=== PATIENT | female | born 1960 | race Caucasian/White ===

== ENCOUNTER 2017-08-17 21:49 | Inpatient (IN) | payer MEDICAID ==
[2017-08-17 23:11] LABS: HEMATOCRIT 40.6 % (37.0-47.0); HEMOGLOBIN 13.7 g/dl (12.0-16.0); MEAN CORPUSCULAR HEMOGLOBIN 28.8 pg (29.0-33.0); MEAN CORPUSCULAR HGB CONC 33.7 g/dl (32.0-37.0); MEAN CORPUSCULAR VOLUME 85.5 fl (82.0-101.0); MEAN PLATELET VOLUME 10.4 fl (7.4-10.4); PLATELET COUNT 221 10^3/UL (140-415); RED BLOOD COUNT 4.75 10^6/ul (4.20-5.40); RED CELL DISTRIBUTION WIDTH 13.6 % (11.5-14.5)
[2017-08-17 23:11] LABS: WHITE BLOOD COUNT 9.3 10^3/ul (4.8-10.8)
[2017-08-17 23:14] LABS: ADD MAN DIFF? YES; POSITIVE DIFF @See below
[2017-08-17] MEDS: ONDANSETRON 4 MG INJ IV (23:14)
[2017-08-17] MEDS: SOD CHLORIDE 0.9% 1,000 ML IV (23:14)
[2017-08-17] MEDS: morphine 4 MG/ML VIAL IV (23:14)
[2017-08-17 23:33] LABS: LACTIC ACID 1.6 mmol/L (0.5-2.0)
[2017-08-17 23:34] LABS: ALANINE AMINOTRANSFERASE 27 IU/L (13-69); ALBUMIN 3.8 g/dl (3.3-4.9); ALBUMIN/GLOBULIN RATIO 1.15; ALKALINE PHOSPHATASE 103 IU/L (42-121); ANION GAP 14 (8-16); ASPARTATE AMINO TRANSFERASE 30 IU/L (15-46); BILIRUBIN,INDIRECT 2.8 mg/dl (0-1.1); BILIRUBIN,TOTAL 2.8 mg/dl (0.2-1.3); BLOOD UREA NITROGEN 16 mg/dl (7-20); CALCIUM 9.6 mg/dl (8.4-10.2); CARBON DIOXIDE 26 mmol/L (21-31); CHLORIDE 103 mmol/L (97-110); CREATININE 0.93 mg/dl (0.44-1.00); GLUCOSE 118 mg/dl (70-220); LIPASE 15 U/L (23-300); POTASSIUM 4.1 mmol/L (3.5-5.1); SODIUM 139 mmol/L (135-144); TOTAL PROTEIN 7.1 g/dl (6.1-8.1)
[2017-08-17 23:59] LABS: ADD UMIC YES; UR ASCORBIC ACID NEGATIVE (NEGATIVE); UR BILIRUBIN (Dip) 1+ mg/dL (NEGATIVE); UR BLOOD (Dip) 2+ mg/dL (NEGATIVE); UR CLARITY SLIGHTLY CLOUDY (CLEAR); UR COLOR AMBER (YELLOW); UR GLUCOSE (Dip) NEGATIVE (NEGATIVE); UR KETONES (Dip) NEGATIVE (NEGATIVE); UR LEUKOCYTE ESTERASE (Dip) NEGATIVE Leu/ul (NEGATIVE); UR MUCUS FEW /HPF (NONE SEEN); UR NITRITE (Dip) NEGATIVE (NEGATIVE); UR RBC 4 /HPF (0-5); UR SPECIFIC GRAVITY (Dip) 1.028 (1.003-1.030); UR SQUAMOUS EPITHELIAL CELL FEW /HPF (FEW); UR TOTAL PROTEIN (Dip) 2+ mg/dl (NEGATIVE); UR UROBILINOGEN (Dip) 2+ mg/dL (NEGATIVE); UR WBC 3 /HPF (0-5)
[2017-08-18 00:33] LABS: BAND NEUTROPHILS #M 1.9 10^3/ul (0.0-0.6); BAND NEUTROPHILS % (M) 21 % (0-4); GIANT THROMBO% (M) 1 % (0-0); LYMPHOCYTES #M 1.1 10^3/ul (0.8-2.9); LYMPHOCYTES % (M) 12 % (15-51); METAMYELOCYTES %M 1 % (0-0); MONOCYTE #M 0.1 10^3/ul (0.3-0.9); MONOCYTES % (M) 2 % (0-11); PLATELET ESTIMATE NORMAL; PROMYELOCYTES % (M) 1 % (0-0); SEGMENTED NEUTROPHILS (M) % 63 % (39-77); SMUDGE%M 1 % (0-0)
[2017-08-18] MEDS ORDERED: ONDANSETRON 4 MG INJ IV (05:00)
[2017-08-18] MEDS: DEXTROSE 5%-0.45% NACL 1,000 ML IV ×4 (05:23→18:24)
[2017-08-18] MEDS: morphine 2 MG INJ IV ×4 (05:30→18:18)
[2017-08-18 06:15] LABS: ADD MAN DIFF? NO
[2017-08-18 06:17] LABS: ABNORMAL IP MESSAGE 1; BASOPHILS % 0.1 % (0.0-2.0); HEMATOCRIT 34.7 % (37.0-47.0); HEMOGLOBIN 11.7 g/dl (12.0-16.0); LYMPHOCYTES # 0.4 10^3/ul (0.8-2.9); LYMPHOCYTES % 5.2 % (15.0-51.0); MEAN CORPUSCULAR HEMOGLOBIN 29.5 pg (29.0-33.0); MEAN CORPUSCULAR HGB CONC 33.7 g/dl (32.0-37.0); MEAN CORPUSCULAR VOLUME 87.4 fl (82.0-101.0); MEAN PLATELET VOLUME 10.5 fl (7.4-10.4); MONOCYTE # 0.4 10^3/ul (0.3-0.9); MONOCYTES % 5.3 % (0.0-11.0); NEUTROPHIL # 6.7 10^3/ul (1.6-7.5); PLATELET COUNT 174 10^3/UL (140-415); RED BLOOD COUNT 3.97 10^6/ul (4.20-5.40); RED CELL DISTRIBUTION WIDTH 13.8 % (11.5-14.5)
[2017-08-18 06:17] LABS: WHITE BLOOD COUNT 7.5 10^3/ul (4.8-10.8)
[2017-08-18 06:24] LABS: POSITIVE DIFF @See below
[2017-08-18 06:55] LABS: ALANINE AMINOTRANSFERASE 25 IU/L (13-69); ALBUMIN 3.3 g/dl (3.3-4.9); ALKALINE PHOSPHATASE 84 IU/L (42-121); ANION GAP 12 (8-16); ASPARTATE AMINO TRANSFERASE 27 IU/L (15-46); BILIRUBIN,INDIRECT 2.3 mg/dl (0-1.1); BILIRUBIN,TOTAL 2.3 mg/dl (0.2-1.3); BLOOD UREA NITROGEN 16 mg/dl (7-20); CALCIUM 8.9 mg/dl (8.4-10.2); CARBON DIOXIDE 29 mmol/L (21-31); CHLORIDE 104 mmol/L (97-110); CREATININE 0.92 mg/dl (0.44-1.00); GLUCOSE 101 mg/dl (70-220); MAGNESIUM 1.9 mg/dl (1.7-2.5); PHOSPHORUS 2.7 mg/dl (2.5-4.9); SODIUM 141 mmol/L (135-144); TOTAL PROTEIN 6.6 g/dl (6.1-8.1)
[2017-08-18] MEDS ORDERED: ALBUTEROL/IPRATROPIUM (NEB) 3 ML AMP HHN (08:30)
[2017-08-18] MEDS ORDERED: NACL 0.9% 3 ML SYG IV (08:30)
[2017-08-18] MEDS: CEFEPIME 1GM/50 ML (PMX) 50 ML IVPB ×2 (08:40→21:17)
[2017-08-18] MEDS: ACETAMINOPHEN 325 MG TAB PO (16:37)
[2017-08-18 20:10] LABS: CANCER ANTIGEN 19-9 < 1.4 U/ml (0.0-37.0)
[2017-08-18 23:42] LABS: HEMOGLOBIN 11.1 g/dl (12.0-16.0)
[2017-08-19] MEDS ORDERED: morphine 2 MG INJ IV (00:30)
[2017-08-19] MEDS: LACTATED RINGER'S 500 ML IV (01:03)
[2017-08-19] MEDS: HYDROCODONE/APAP (7.5/325) TAB PO (02:18)
[2017-08-19] MEDS: DEXTROSE 5%-0.45% NACL 1,000 ML IV ×2 (05:51→17:55)
[2017-08-19 06:27] LABS: WHITE BLOOD COUNT 7.7 10^3/ul (4.8-10.8)
[2017-08-19 06:27] LABS: ABNORMAL IP MESSAGE 1; ADD MAN DIFF? NO; BASOPHILS % 0.1 % (0.0-2.0); EOSINOPHILS % 0.1 % (0.0-7.0); HEMATOCRIT 32.7 % (37.0-47.0); HEMOGLOBIN 10.9 g/dl (12.0-16.0); LYMPHOCYTES # 0.5 10^3/ul (0.8-2.9); LYMPHOCYTES % 6.1 % (15.0-51.0); MEAN CORPUSCULAR HEMOGLOBIN 28.9 pg (29.0-33.0); MEAN CORPUSCULAR HGB CONC 33.3 g/dl (32.0-37.0); MEAN CORPUSCULAR VOLUME 86.7 fl (82.0-101.0); MEAN PLATELET VOLUME 11.4 fl (7.4-10.4); MONOCYTE # 0.5 10^3/ul (0.3-0.9); MONOCYTES % 6.6 % (0.0-11.0); NEUTROPHIL # 6.7 10^3/ul (1.6-7.5); NEUTROPHILS % 86.6 % (39.0-77.0); PLATELET COUNT 166 10^3/UL (140-415); RED BLOOD COUNT 3.77 10^6/ul (4.20-5.40); RED CELL DISTRIBUTION WIDTH 13.9 % (11.5-14.5)
[2017-08-19 06:32] LABS: POSITIVE DIFF @See below
[2017-08-19 06:50] LABS: ALANINE AMINOTRANSFERASE 22 IU/L (13-69); ALBUMIN 3.2 g/dl (3.3-4.9); ALBUMIN/GLOBULIN RATIO 1.03; ALKALINE PHOSPHATASE 87 IU/L (42-121); ANION GAP 8 (8-16); ASPARTATE AMINO TRANSFERASE 23 IU/L (15-46); BILIRUBIN,INDIRECT 1.2 mg/dl (0-1.1); BILIRUBIN,TOTAL 1.2 mg/dl (0.2-1.3); BLOOD UREA NITROGEN 11 mg/dl (7-20); CALCIUM 8.6 mg/dl (8.4-10.2); CARBON DIOXIDE 29 mmol/L (21-31); CHLORIDE 104 mmol/L (97-110); CREATININE 0.78 mg/dl (0.44-1.00); GLUCOSE 113 mg/dl (70-220); MAGNESIUM 2.1 mg/dl (1.7-2.5); PHOSPHORUS 2.3 mg/dl (2.5-4.9); POTASSIUM 3.5 mmol/L (3.5-5.1); SODIUM 137 mmol/L (135-144); TOTAL PROTEIN 6.3 g/dl (6.1-8.1)
[2017-08-19] MEDS: ACETAMINOPHEN 325 MG TAB PO (09:08)
[2017-08-19] MEDS: CEFEPIME 1GM/50 ML (PMX) 50 ML IVPB ×2 (09:47→22:27)
[2017-08-19] MEDS: HYDROmorphONE 0.5 MG/0.5 ML SYG IV ×2 (16:42→20:05)
[2017-08-20] MEDS: ACETAMINOPHEN 325 MG TAB PO (01:14)
[2017-08-20] MEDS: ONDANSETRON 4 MG INJ IV ×4 (01:27→23:09)
[2017-08-20] MEDS: DEXTROSE 5%-0.45% NACL 1,000 ML IV ×2 (04:44→15:17)
[2017-08-20 05:49] LABS: ADD MAN DIFF? NO
[2017-08-20 05:53] LABS: BASOPHILS % 0.2 % (0.0-2.0); EOSINOPHILS % 0.2 % (0.0-7.0); HEMATOCRIT 32.4 % (37.0-47.0); HEMOGLOBIN 10.9 g/dl (12.0-16.0); LYMPHOCYTES # 0.7 10^3/ul (0.8-2.9); LYMPHOCYTES % 8.2 % (15.0-51.0); MEAN CORPUSCULAR HEMOGLOBIN 28.6 pg (29.0-33.0); MEAN CORPUSCULAR HGB CONC 33.6 g/dl (32.0-37.0); MEAN PLATELET VOLUME 10.7 fl (7.4-10.4); MONOCYTE # 0.9 10^3/ul (0.3-0.9); MONOCYTES % 10.9 % (0.0-11.0); NEUTROPHIL # 6.7 10^3/ul (1.6-7.5); PLATELET COUNT 192 10^3/UL (140-415); RED BLOOD COUNT 3.81 10^6/ul (4.20-5.40); RED CELL DISTRIBUTION WIDTH 13.5 % (11.5-14.5)
[2017-08-20 05:53] LABS: WHITE BLOOD COUNT 8.3 10^3/ul (4.8-10.8)
[2017-08-20 06:16] LABS: ANION GAP 9 (8-16); BLOOD UREA NITROGEN 7 mg/dl (7-20); CALCIUM 8.6 mg/dl (8.4-10.2); CARBON DIOXIDE 27 mmol/L (21-31); CHLORIDE 107 mmol/L (97-110); CREATININE 0.67 mg/dl (0.44-1.00); GLUCOSE 115 mg/dl (70-220); POTASSIUM 3.4 mmol/L (3.5-5.1); SODIUM 140 mmol/L (135-144)
[2017-08-20 07:10] LABS: CARCINOEMBRYONIC ANTIGEN 0.7 ng/ml (0.0-5.0)
[2017-08-20] MEDS: CEFEPIME 1GM/50 ML (PMX) 50 ML IVPB (08:45)
[2017-08-20] MEDS: IOHEXOL 14.3 MG(I)/ML (ADULT) BTL PO (08:45)
[2017-08-20] MEDS: KETOROLAC 15 MG INJ IV ×3 (10:57→23:11)
[2017-08-20] MEDS: POTASSIUM CHLORIDE (SR) 20 MEQ TAB PO (15:16)
[2017-08-20] MEDS: PIPER-TAZO 3.375 GM IV (PMX) 100 ML IVPB ×2 (15:17→23:12)
[2017-08-20] MEDS: HYDROCODONE/APAP (7.5/325) TAB PO (21:47)
[2017-08-21] MEDS: HYDROCODONE/APAP (7.5/325) TAB PO ×4 (02:56→21:05)
[2017-08-21] MEDS: DEXTROSE 5%-0.45% NACL 1,000 ML IV ×2 (02:57→20:53)
[2017-08-21] MEDS: ONDANSETRON 4 MG INJ IV ×3 (05:21→17:54)
[2017-08-21] MEDS: KETOROLAC 15 MG INJ IV ×3 (05:22→17:54)
[2017-08-21] MEDS: PIPER-TAZO 3.375 GM IV (PMX) 100 ML IVPB ×3 (05:23→17:55)
[2017-08-21 06:04] LABS: ADD MAN DIFF? NO
[2017-08-21 06:12] LABS: BASOPHILS % 0.1 % (0.0-2.0); EOSINOPHILS # 0.1 10^3/ul (0.0-0.5); EOSINOPHILS % 0.9 % (0.0-7.0); HEMATOCRIT 30.5 % (37.0-47.0); HEMOGLOBIN 10.5 g/dl (12.0-16.0); LYMPHOCYTES # 1.2 10^3/ul (0.8-2.9); LYMPHOCYTES % 18.4 % (15.0-51.0); MEAN CORPUSCULAR HEMOGLOBIN 29.2 pg (29.0-33.0); MEAN CORPUSCULAR HGB CONC 34.4 g/dl (32.0-37.0); MEAN PLATELET VOLUME 10.4 fl (7.4-10.4); MONOCYTE # 0.8 10^3/ul (0.3-0.9); MONOCYTES % 12.4 % (0.0-11.0); NEUTROPHIL # 4.5 10^3/ul (1.6-7.5); NEUTROPHILS % 67.8 % (39.0-77.0); PLATELET COUNT 206 10^3/UL (140-415); RED BLOOD COUNT 3.59 10^6/ul (4.20-5.40); RED CELL DISTRIBUTION WIDTH 13.8 % (11.5-14.5)
[2017-08-21 06:12] LABS: WHITE BLOOD COUNT 6.7 10^3/ul (4.8-10.8)
[2017-08-21] MEDS: SOD CHLORIDE 0.9% 500 ML IV (06:39)
[2017-08-21 06:57] LABS: ANION GAP 9 (8-16); BLOOD UREA NITROGEN 7 mg/dl (7-20); CALCIUM 8.8 mg/dl (8.4-10.2); CARBON DIOXIDE 29 mmol/L (21-31); CHLORIDE 109 mmol/L (97-110); CREATININE 0.77 mg/dl (0.44-1.00); GLUCOSE 107 mg/dl (70-220); POTASSIUM 3.3 mmol/L (3.5-5.1); SODIUM 144 mmol/L (135-144)
[2017-08-21] MEDS: ENOXAPARIN 40 MG/0.4 ML SYG SC (11:30)
[2017-08-21] MEDS: POTASSIUM CHLORIDE 20 MEQ POWDER FOR ORAL SOLN PO (11:30)
[2017-08-21] MEDS: FAMOTIDINE 20 MG TAB PO (11:30)
[2017-08-21] MEDS: IOHEXOL 14.3 MG(I)/ML (ADULT) BTL PO (18:33)
[2017-08-21] MEDS: SOD CHLORIDE 0.9% 100 ML (21:25)
[2017-08-21] MEDS: IOHEXOL 300MG/ML 150 ML BTL (21:25)
[2017-08-22] MEDS: PIPER-TAZO 3.375 GM IV (PMX) 100 ML IVPB ×5 (00:35→23:52)
[2017-08-22] MEDS: KETOROLAC 15 MG INJ IV ×3 (00:36→12:26)
[2017-08-22] MEDS: ONDANSETRON 4 MG INJ IV ×3 (00:43→12:26)
[2017-08-22] MEDS: HYDROCODONE/APAP (7.5/325) TAB PO ×6 (01:39→23:56)
[2017-08-22 06:28] LABS: WHITE BLOOD COUNT 8.2 10^3/ul (4.8-10.8)
[2017-08-22 06:28] LABS: HEMATOCRIT 30.9 % (37.0-47.0); HEMOGLOBIN 10.4 g/dl (12.0-16.0); MEAN CORPUSCULAR HEMOGLOBIN 28.8 pg (29.0-33.0); MEAN CORPUSCULAR HGB CONC 33.7 g/dl (32.0-37.0); MEAN CORPUSCULAR VOLUME 85.6 fl (82.0-101.0); MEAN PLATELET VOLUME 10.2 fl (7.4-10.4); PLATELET COUNT 242 10^3/UL (140-415); RED BLOOD COUNT 3.61 10^6/ul (4.20-5.40)
[2017-08-22 06:56] LABS: ADD MAN DIFF? YES; POSITIVE DIFF @See below
[2017-08-22 07:07] LABS: INR 1.19; PROTIME 15.3 Sec (11.9-14.9); PT RATIO 1.2
[2017-08-22 07:50] LABS: ALANINE AMINOTRANSFERASE 39 IU/L (13-69); ALBUMIN 2.8 g/dl (3.3-4.9); ALBUMIN/GLOBULIN RATIO 0.87; ALKALINE PHOSPHATASE 188 IU/L (42-121); ANION GAP 11 (8-16); ASPARTATE AMINO TRANSFERASE 36 IU/L (15-46); BLOOD UREA NITROGEN 4 mg/dl (7-20); CALCIUM 8.8 mg/dl (8.4-10.2); CARBON DIOXIDE 30 mmol/L (21-31); CHLORIDE 108 mmol/L (97-110); CREATININE 0.78 mg/dl (0.44-1.00); GLUCOSE 91 mg/dl (70-220); MAGNESIUM 2.1 mg/dl (1.7-2.5); PHOSPHORUS 2.9 mg/dl (2.5-4.9); POTASSIUM 3.5 mmol/L (3.5-5.1); SODIUM 145 mmol/L (135-144)
[2017-08-22 08:29] LABS: ANISOCYTOSIS 1+ (0-0); BAND NEUTROPHILS #M 0.1 10^3/ul (0.0-0.6); BAND NEUTROPHILS % (M) 2 % (0-4); EOSINOPHILS % (M) 3 % (0-7); LYMPHOCYTES #M 2.9 10^3/ul (0.8-2.9); LYMPHOCYTES % (M) 36 % (15-51); MICROCYTOSIS 1+ (0-0); MONOCYTE #M 0.4 10^3/ul (0.3-0.9); MONOCYTES % (M) 6 % (0-11); PLATELET ESTIMATE NORMAL; REACTIVE LYMPHOCYTES #M 0.1 10^3/ul (0.0-0.0); REACTIVE LYMPHOCYTES% (M) 2 % (0-0); SEG NEUT #M 4.2 10^3/ul (1.6-7.5); SEGMENTED NEUTROPHILS (M) % 51 % (39-77); SMUDGE%M 3 % (0-0)
[2017-08-22] MEDS: POTASSIUM CHLORIDE 20 MEQ POWDER FOR ORAL SOLN PO (08:29)
[2017-08-22] MEDS: FAMOTIDINE 20 MG TAB PO (08:29)
[2017-08-22] MEDS: ENOXAPARIN 40 MG/0.4 ML SYG SC (08:30)
[2017-08-22 08:41] LABS: HEMOGLOBIN A1C 5.5 % (0-5.9)
[2017-08-22] MEDS: DEXTROSE 5%-0.45% NACL 1,000 ML IV (15:37)
[2017-08-22] MEDS: MAGNESIUM CITRATE 300 ML BTL PO (17:47)
[2017-08-23] MEDS: PIPER-TAZO 3.375 GM IV (PMX) 100 ML IVPB ×3 (06:06→17:53)
[2017-08-23 06:13] LABS: HEMATOCRIT 31.3 % (37.0-47.0); HEMOGLOBIN 10.6 g/dl (12.0-16.0); MEAN CORPUSCULAR HEMOGLOBIN 28.6 pg (29.0-33.0); MEAN CORPUSCULAR HGB CONC 33.9 g/dl (32.0-37.0); MEAN CORPUSCULAR VOLUME 84.6 fl (82.0-101.0); PLATELET COUNT 288 10^3/UL (140-415)
[2017-08-23 06:13] LABS: WHITE BLOOD COUNT 8.3 10^3/ul (4.8-10.8)
[2017-08-23 06:24] LABS: ADD MAN DIFF? YES; POSITIVE DIFF @See below
[2017-08-23 06:57] LABS: ALANINE AMINOTRANSFERASE 46 IU/L (13-69); ALBUMIN 2.9 g/dl (3.3-4.9); ALBUMIN/GLOBULIN RATIO 0.85; ALKALINE PHOSPHATASE 246 IU/L (42-121); ANION GAP 10 (8-16); ASPARTATE AMINO TRANSFERASE 53 IU/L (15-46); BILIRUBIN,INDIRECT 0.9 mg/dl (0-1.1); BILIRUBIN,TOTAL 0.9 mg/dl (0.2-1.3); BLOOD UREA NITROGEN 3 mg/dl (7-20); CALCIUM 8.7 mg/dl (8.4-10.2); CARBON DIOXIDE 31 mmol/L (21-31); CHLORIDE 107 mmol/L (97-110); CREATININE 0.74 mg/dl (0.44-1.00); GLUCOSE 101 mg/dl (70-220); POTASSIUM 3.4 mmol/L (3.5-5.1); SODIUM 145 mmol/L (135-144); TOTAL PROTEIN 6.3 g/dl (6.1-8.1)
[2017-08-23] MEDS ORDERED: ONDANSETRON 4 MG INJ (07:00)
[2017-08-23] MEDS ORDERED: METOCLOPRAMIDE 10 MG INJ (07:00)
[2017-08-23] MEDS ORDERED: DEXAMETHASONE 4 MG/ML 1 ML INJ (07:00)
[2017-08-23] MEDS ORDERED: ACETAMINOPHEN 1000 MG/100 ML IVPB (07:00)
[2017-08-23] MEDS ORDERED: VANCOMYCIN IV PER PHARMACY XX (07:30)
[2017-08-23] MEDS: DEXTROSE 5%-0.45% NACL 1,000 ML IV (07:33)
[2017-08-23 07:36] LABS: BAND NEUTROPHILS #M 0.1 10^3/ul (0.0-0.6); BAND NEUTROPHILS % (M) 2 % (0-4); EOSINOPHILS % (M) 2 % (0-7); LYMPHOCYTES #M 1.6 10^3/ul (0.8-2.9); LYMPHOCYTES % (M) 20 % (15-51); METAMYELOCYTES %M 1 % (0-0); MONOCYTE #M 0.2 10^3/ul (0.3-0.9); MONOCYTES % (M) 3 % (0-11); PLATELET ESTIMATE NORMAL; POLYCHROMASIA 3+ (0-0); REACTIVE LYMPHOCYTES #M 0.1 10^3/ul (0.0-0.0); REACTIVE LYMPHOCYTES% (M) 2 % (0-0); SEG NEUT #M 5.8 10^3/ul (1.6-7.5); SEGMENTED NEUTROPHILS (M) % 70 % (39-77); SMUDGE%M 4 % (0-0)
[2017-08-23 07:37] LABS: INR 1.18; PROTIME 15.2 Sec (11.9-14.9); PT RATIO 1.2
[2017-08-23 07:38] LABS: PARTIAL THROMBOPLASTIN TIME 35.6 Sec (25.0-35.0)
[2017-08-23] MEDS ORDERED: VASOPRESSIN 20 UNITS INJ (07:41)
[2017-08-23] MEDS ORDERED: LIDOCAINE 1%/EPI 30 ML INJ (07:41)
[2017-08-23] MEDS ORDERED: SODIUM CL BACTERIOSTATIC 30 ML INJ (07:41)
[2017-08-23] MEDS ORDERED: FENTAnyl 50 MCG/ML VIAL ×2 (07:56→09:03)
[2017-08-23] MEDS ORDERED: PROPOFOL 20 ML (07:56)
[2017-08-23] MEDS ORDERED: MIDAZOLAM 1 MG/ML 2 ML INJ (07:56)
[2017-08-23] MEDS ORDERED: ROCURONIUM 50 MG INJ (07:56)
[2017-08-23] MEDS ORDERED: LIDOCAINE 2% (SDV) 5 ML INJ (07:56)
[2017-08-23] MEDS ORDERED: SUCCINYLCHOLINE CHLORIDE 100 MG/5 ML SYG IV (07:56)
[2017-08-23] MEDS: VANCOMYCIN 1.5 GM in SOD CHLORIDE 0.9% 250 ML IVPB (08:34)
[2017-08-23] MEDS: FAMOTIDINE 20 MG TAB PO (08:34)
[2017-08-23] MEDS: POTASSIUM CHLORIDE 20 MEQ POWDER FOR ORAL SOLN PO (08:34)
[2017-08-23] MEDS: POLYMYXIN/BACITRACIN 1L IRRIG (10:25)
[2017-08-23] MEDS: D5-NS + KCL 20 MEQ 1,000 ML IV ×3 (11:57→19:57)
[2017-08-23] MEDS ORDERED: DIPHENHYDRAMINE 50 MG INJ IV ×3 (12:00→13:00)
[2017-08-23] MEDS ORDERED: ROPIVACAINE 0.5 % 30 ML VIAL (12:04)
[2017-08-23] MEDS ORDERED: morphine SULFATE/PF (10 MG/10 ML) INJ (12:15)
[2017-08-23] MEDS ORDERED: HYDROmorphONE 2 MG/ML SYG (12:17)
[2017-08-23] MEDS ORDERED: SUGAMMADEX SODIUM 200 MG/2 ML VIAL IV (12:18)
[2017-08-23] MEDS ORDERED: HYDROmorphONE 0.2 MG/ML PCA IV (12:30)
[2017-08-23] MEDS ORDERED: NALOXONE (0.4 MG/ML) INJ IV ×2 (12:30→13:00)
[2017-08-23] MEDS ORDERED: KETOROLAC 30 MG INJ (12:39)
[2017-08-23] MEDS ORDERED: HYDROmorphONE (0.2 MG/ML) 10ML SYG IV ×4 (12:41→13:00)
[2017-08-23 12:47] LABS: ADD MAN DIFF? NO
[2017-08-23 12:48] LABS: BASOPHIL # 0.1 10^3/ul (0.0-0.1); BASOPHILS % 0.5 % (0.0-2.0); EOSINOPHILS % 0.1 % (0.0-7.0); HEMATOCRIT 35.2 % (37.0-47.0); HEMOGLOBIN 11.9 g/dl (12.0-16.0); LYMPHOCYTES # 2.9 10^3/ul (0.8-2.9); LYMPHOCYTES % 14.6 % (15.0-51.0); MEAN CORPUSCULAR HEMOGLOBIN 28.3 pg (29.0-33.0); MEAN CORPUSCULAR HGB CONC 33.8 g/dl (32.0-37.0); MEAN CORPUSCULAR VOLUME 83.8 fl (82.0-101.0); MEAN PLATELET VOLUME 9.6 fl (7.4-10.4); MONOCYTES % 5.2 % (0.0-11.0); NEUTROPHIL # 15.7 10^3/ul (1.6-7.5); PLATELET COUNT 442 10^3/UL (140-415)
[2017-08-23 12:48] LABS: WHITE BLOOD COUNT 20.2 10^3/ul (4.8-10.8)
[2017-08-23] MEDS: HYDROmorphONE 0.5 MG/0.5 ML SYG IV ×2 (12:50→22:03)
[2017-08-23] MEDS: KETOROLAC 30 MG INJ IV ×2 (12:51→17:53)
[2017-08-23] MEDS: FENTAnyl 50 MCG/ML VIAL IV (12:55)
[2017-08-23] MEDS: ONDANSETRON 4 MG INJ IV ×2 (12:56→22:09)
[2017-08-23] MEDS: MEPERIDINE 25 MG INJ IV (12:56)
[2017-08-23] MEDS ORDERED: METOCLOPRAMIDE 10 MG INJ IV (13:00)
[2017-08-23] MEDS ORDERED: FENTAnyl 50 MCG/ML VIAL IV (13:00)
[2017-08-23] MEDS ORDERED: ZOLPIDEM 5 MG TAB PO (13:00)
[2017-08-23] MEDS ORDERED: ONDANSETRON 4 MG INJ IV (13:00)
[2017-08-23] MEDS: LORAZEPAM 2 MG INJ IV (13:04)
[2017-08-23 13:08] LABS: ANION GAP 13 (8-16); BLOOD UREA NITROGEN 3 mg/dl (7-20); CALCIUM 8.5 mg/dl (8.4-10.2); CARBON DIOXIDE 29 mmol/L (21-31); CHLORIDE 101 mmol/L (97-110); CREATININE 0.68 mg/dl (0.44-1.00); GLUCOSE 146 mg/dl (70-220); POTASSIUM 3.2 mmol/L (3.5-5.1); SODIUM 140 mmol/L (135-144)
[2017-08-23] MEDS ORDERED: POTASSIUM CHLORIDE 50 ML IVPB (14:00)
[2017-08-23 14:28] LABS: MAGNESIUM 1.8 mg/dl (1.7-2.5)
[2017-08-23] MEDS: POTASSIUM CHLORIDE 20 MEQ/SW 100 ML IVPB ×3 (16:04→22:08)
[2017-08-23] MEDS: VANCOMYCIN 1 GM 250 ML IVPB (22:08)
[2017-08-24] MEDS: KETOROLAC 30 MG INJ IV ×3 (00:16→12:27)
[2017-08-24] MEDS: PIPER-TAZO 3.375 GM IV (PMX) 100 ML IVPB ×4 (00:16→18:07)
[2017-08-24] MEDS: ONDANSETRON 4 MG INJ IV ×2 (03:34→12:27)
[2017-08-24] MEDS: HYDROmorphONE 0.5 MG/0.5 ML SYG IV ×2 (03:34→09:33)
[2017-08-24] MEDS: D5-NS + KCL 20 MEQ 1,000 ML IV ×3 (03:57→20:58)
[2017-08-24 05:27] LABS: ADD MAN DIFF? NO
[2017-08-24 05:32] LABS: BASOPHILS % 0.1 % (0.0-2.0); EOSINOPHILS % 0.1 % (0.0-7.0); HEMATOCRIT 28.7 % (37.0-47.0); HEMOGLOBIN 9.7 g/dl (12.0-16.0); LYMPHOCYTES # 1.4 10^3/ul (0.8-2.9); LYMPHOCYTES % 13.4 % (15.0-51.0); MEAN CORPUSCULAR HEMOGLOBIN 28.3 pg (29.0-33.0); MEAN CORPUSCULAR HGB CONC 33.8 g/dl (32.0-37.0); MEAN CORPUSCULAR VOLUME 83.7 fl (82.0-101.0); MEAN PLATELET VOLUME 9.6 fl (7.4-10.4); MONOCYTE # 0.6 10^3/ul (0.3-0.9); NEUTROPHILS % 79.6 % (39.0-77.0); PLATELET COUNT 313 10^3/UL (140-415); RED BLOOD COUNT 3.43 10^6/ul (4.20-5.40); RED CELL DISTRIBUTION WIDTH 14.2 % (11.5-14.5)
[2017-08-24 05:32] LABS: WHITE BLOOD COUNT 10.1 10^3/ul (4.8-10.8)
[2017-08-24] MEDS: PANTOPRAZOLE 40 MG INJ IV (05:46)
[2017-08-24 05:50] LABS: ALANINE AMINOTRANSFERASE 41 IU/L (13-69); ALBUMIN 2.6 g/dl (3.3-4.9); ALBUMIN/GLOBULIN RATIO 0.83; ALKALINE PHOSPHATASE 158 IU/L (42-121); ANION GAP 15 (8-16); ASPARTATE AMINO TRANSFERASE 47 IU/L (15-46); BILIRUBIN,INDIRECT 0.8 mg/dl (0-1.1); BILIRUBIN,TOTAL 0.8 mg/dl (0.2-1.3); BLOOD UREA NITROGEN 5 mg/dl (7-20); CARBON DIOXIDE 28 mmol/L (21-31); CHLORIDE 104 mmol/L (97-110); CREATININE 0.62 mg/dl (0.44-1.00); GLUCOSE 107 mg/dl (70-220); POTASSIUM 3.6 mmol/L (3.5-5.1); SODIUM 143 mmol/L (135-144); TOTAL PROTEIN 5.7 g/dl (6.1-8.1)
[2017-08-24 05:59] LABS: PHOSPHORUS 3.8 mg/dl (2.5-4.9)
[2017-08-24] MEDS: ENOXAPARIN 40 MG/0.4 ML SYG SC (06:57)
[2017-08-24] MEDS: POTASSIUM CHLORIDE 20 MEQ POWDER FOR ORAL SOLN PO (09:00)
[2017-08-24] MEDS: VANCOMYCIN 1 GM 250 ML IVPB ×2 (09:27→20:58)
[2017-08-24] MEDS: HYDROmorphONE 0.2 MG/ML PCA IV ×2 (15:12→19:18)
[2017-08-25] MEDS: PIPER-TAZO 3.375 GM IV (PMX) 100 ML IVPB ×5 (00:02→23:48)
[2017-08-25] MEDS: D5-NS + KCL 20 MEQ 1,000 ML IV ×3 (03:57→21:20)
[2017-08-25] MEDS: HYDROmorphONE 0.2 MG/ML PCA IV ×3 (05:16→18:02)
[2017-08-25 05:49] LABS: ADD MAN DIFF? NO
[2017-08-25 05:55] LABS: WHITE BLOOD COUNT 6.4 10^3/ul (4.8-10.8)
[2017-08-25 05:55] LABS: BASOPHILS % 0.2 % (0.0-2.0); EOSINOPHILS # 0.1 10^3/ul (0.0-0.5); EOSINOPHILS % 1.4 % (0.0-7.0); HEMATOCRIT 25.9 % (37.0-47.0); HEMOGLOBIN 8.4 g/dl (12.0-16.0); LYMPHOCYTES # 1.3 10^3/ul (0.8-2.9); LYMPHOCYTES % 20.9 % (15.0-51.0); MEAN CORPUSCULAR HEMOGLOBIN 28.5 pg (29.0-33.0); MEAN CORPUSCULAR HGB CONC 32.4 g/dl (32.0-37.0); MEAN CORPUSCULAR VOLUME 87.8 fl (82.0-101.0); MEAN PLATELET VOLUME 9.5 fl (7.4-10.4); MONOCYTE # 0.5 10^3/ul (0.3-0.9); MONOCYTES % 8.5 % (0.0-11.0); NEUTROPHIL # 4.3 10^3/ul (1.6-7.5); NEUTROPHILS % 68.1 % (39.0-77.0); PLATELET COUNT 318 10^3/UL (140-415); RED BLOOD COUNT 2.95 10^6/ul (4.20-5.40); RED CELL DISTRIBUTION WIDTH 14.5 % (11.5-14.5)
[2017-08-25 06:12] LABS: ALANINE AMINOTRANSFERASE 41 IU/L (13-69); ALBUMIN 2.4 g/dl (3.3-4.9); ALBUMIN/GLOBULIN RATIO 0.85; ALKALINE PHOSPHATASE 125 IU/L (42-121); ANION GAP 7 (8-16); ASPARTATE AMINO TRANSFERASE 52 IU/L (15-46); BILIRUBIN,INDIRECT 0.4 mg/dl (0-1.1); BILIRUBIN,TOTAL 0.4 mg/dl (0.2-1.3); BLOOD UREA NITROGEN 3 mg/dl (7-20); CALCIUM 8.1 mg/dl (8.4-10.2); CARBON DIOXIDE 34 mmol/L (21-31); CHLORIDE 109 mmol/L (97-110); CREATININE 0.68 mg/dl (0.44-1.00); GLUCOSE 107 mg/dl (70-220); MAGNESIUM 2.3 mg/dl (1.7-2.5); POTASSIUM 3.8 mmol/L (3.5-5.1); SODIUM 146 mmol/L (135-144); TOTAL PROTEIN 5.2 g/dl (6.1-8.1)
[2017-08-25 06:12] LABS: PHOSPHORUS 2.8 mg/dl (2.5-4.9)
[2017-08-25] MEDS: PANTOPRAZOLE 40 MG INJ IV (06:15)
[2017-08-25] MEDS: ENOXAPARIN 40 MG/0.4 ML SYG SC (06:20)
[2017-08-25] MEDS: VANCOMYCIN 1 GM 250 ML IVPB ×2 (08:18→21:20)
[2017-08-25] MEDS ORDERED: CEPASTAT LOZENGE MT (13:30)
[2017-08-25] MEDS ORDERED: ALPRAZOLAM 0.25 MG TAB PO (22:30)
[2017-08-26] MEDS: D5-NS + KCL 20 MEQ 1,000 ML IV ×3 (03:57→19:57)
[2017-08-26] MEDS: HYDROmorphONE 0.2 MG/ML PCA IV ×2 (04:26→16:33)
[2017-08-26 05:05] LABS: ADD MAN DIFF? NO
[2017-08-26 05:08] LABS: BASOPHILS % 0.2 % (0.0-2.0); EOSINOPHILS # 0.1 10^3/ul (0.0-0.5); LYMPHOCYTES # 1.4 10^3/ul (0.8-2.9); LYMPHOCYTES % 15.3 % (15.0-51.0); MEAN CORPUSCULAR HEMOGLOBIN 28.2 pg (29.0-33.0); MEAN CORPUSCULAR HGB CONC 32.3 g/dl (32.0-37.0); MEAN CORPUSCULAR VOLUME 87.3 fl (82.0-101.0); MEAN PLATELET VOLUME 8.9 fl (7.4-10.4); MONOCYTE # 0.5 10^3/ul (0.3-0.9); MONOCYTES % 5.1 % (0.0-11.0); NEUTROPHIL # 6.9 10^3/ul (1.6-7.5); NEUTROPHILS % 77.4 % (39.0-77.0); PLATELET COUNT 491 10^3/UL (140-415); RED BLOOD COUNT 3.55 10^6/ul (4.20-5.40); RED CELL DISTRIBUTION WIDTH 14.1 % (11.5-14.5)
[2017-08-26 05:49] LABS: ALANINE AMINOTRANSFERASE 45 IU/L (13-69); ALBUMIN/GLOBULIN RATIO 0.88; ALKALINE PHOSPHATASE 149 IU/L (42-121); ANION GAP 12 (8-16); ASPARTATE AMINO TRANSFERASE 57 IU/L (15-46); BILIRUBIN,INDIRECT 0.5 mg/dl (0-1.1); BILIRUBIN,TOTAL 0.5 mg/dl (0.2-1.3); CALCIUM 8.7 mg/dl (8.4-10.2); CARBON DIOXIDE 34 mmol/L (21-31); CHLORIDE 105 mmol/L (97-110); CREATININE 0.64 mg/dl (0.44-1.00); GLUCOSE 121 mg/dl (70-220); POTASSIUM 3.5 mmol/L (3.5-5.1); SODIUM 147 mmol/L (135-144); TOTAL PROTEIN 6.4 g/dl (6.1-8.1)
[2017-08-26] MEDS: PIPER-TAZO 3.375 GM IV (PMX) 100 ML IVPB ×3 (05:58→18:46)
[2017-08-26] MEDS: PANTOPRAZOLE 40 MG INJ IV (05:58)
[2017-08-26] MEDS: ENOXAPARIN 40 MG/0.4 ML SYG SC (06:01)
[2017-08-26 06:05] LABS: BLOOD UREA NITROGEN < 2 mg/dl (7-20)
[2017-08-26] MEDS: VANCOMYCIN 1.25 GM in SOD CHLORIDE 0.9% 250 ML IVPB (06:32)
[2017-08-26 06:49] LABS: PHOSPHORUS 3.1 mg/dl (2.5-4.9)
[2017-08-26 06:49] LABS: MAGNESIUM 2.3 mg/dl (1.7-2.5)
[2017-08-27] MEDS: D5-NS + KCL 20 MEQ 1,000 ML IV ×3 (00:16→20:43)
[2017-08-27] MEDS: PIPER-TAZO 3.375 GM IV (PMX) 100 ML IVPB ×5 (00:16→23:32)
[2017-08-27 05:14] LABS: ADD MAN DIFF? NO
[2017-08-27 05:18] LABS: BASOPHILS % 0.3 % (0.0-2.0); EOSINOPHILS # 0.2 10^3/ul (0.0-0.5); EOSINOPHILS % 2.3 % (0.0-7.0); HEMATOCRIT 25.4 % (37.0-47.0); HEMOGLOBIN 8.4 g/dl (12.0-16.0); LYMPHOCYTES # 1.4 10^3/ul (0.8-2.9); LYMPHOCYTES % 19.6 % (15.0-51.0); MEAN CORPUSCULAR HEMOGLOBIN 28.7 pg (29.0-33.0); MEAN CORPUSCULAR HGB CONC 33.1 g/dl (32.0-37.0); MEAN CORPUSCULAR VOLUME 86.7 fl (82.0-101.0); MEAN PLATELET VOLUME 8.9 fl (7.4-10.4); MONOCYTE # 0.5 10^3/ul (0.3-0.9); MONOCYTES % 6.9 % (0.0-11.0); NEUTROPHIL # 5.2 10^3/ul (1.6-7.5); NEUTROPHILS % 70.2 % (39.0-77.0); PLATELET COUNT 409 10^3/UL (140-415); RED BLOOD COUNT 2.93 10^6/ul (4.20-5.40); RED CELL DISTRIBUTION WIDTH 14.1 % (11.5-14.5)
[2017-08-27 05:18] LABS: WHITE BLOOD COUNT 7.4 10^3/ul (4.8-10.8)
[2017-08-27 05:38] LABS: ALANINE AMINOTRANSFERASE 48 IU/L (13-69); ALBUMIN 2.7 g/dl (3.3-4.9); ALBUMIN/GLOBULIN RATIO 0.81; ALKALINE PHOSPHATASE 119 IU/L (42-121); ANION GAP 14 (8-16); ASPARTATE AMINO TRANSFERASE 45 IU/L (15-46); BILIRUBIN,INDIRECT 0.7 mg/dl (0-1.1); BILIRUBIN,TOTAL 0.7 mg/dl (0.2-1.3); CALCIUM 8.4 mg/dl (8.4-10.2); CARBON DIOXIDE 29 mmol/L (21-31); CHLORIDE 106 mmol/L (97-110); CREATININE 0.69 mg/dl (0.44-1.00); GLUCOSE 103 mg/dl (70-220); POTASSIUM 3.6 mmol/L (3.5-5.1); SODIUM 145 mmol/L (135-144)
[2017-08-27 05:42] LABS: BLOOD UREA NITROGEN < 2 mg/dl (7-20)
[2017-08-27] MEDS: PANTOPRAZOLE 40 MG INJ IV (05:45)
[2017-08-27 05:57] LABS: MAGNESIUM 2.3 mg/dl (1.7-2.5)
[2017-08-27 05:57] LABS: PHOSPHORUS 3.2 mg/dl (2.5-4.9)
[2017-08-27] MEDS: HYDROmorphONE 0.2 MG/ML PCA IV ×3 (06:01→23:55)
[2017-08-27] MEDS: ENOXAPARIN 40 MG/0.4 ML SYG SC (06:15)
[2017-08-28 05:27] LABS: ADD MAN DIFF? NO
[2017-08-28 05:28] LABS: BASOPHILS % 0.3 % (0.0-2.0); EOSINOPHILS # 0.2 10^3/ul (0.0-0.5); EOSINOPHILS % 2.7 % (0.0-7.0); HEMATOCRIT 27.3 % (37.0-47.0); HEMOGLOBIN 8.9 g/dl (12.0-16.0); LYMPHOCYTES # 1.3 10^3/ul (0.8-2.9); LYMPHOCYTES % 18.1 % (15.0-51.0); MEAN CORPUSCULAR HEMOGLOBIN 28.5 pg (29.0-33.0); MEAN CORPUSCULAR HGB CONC 32.6 g/dl (32.0-37.0); MEAN CORPUSCULAR VOLUME 87.5 fl (82.0-101.0); MEAN PLATELET VOLUME 8.9 fl (7.4-10.4); MONOCYTE # 0.5 10^3/ul (0.3-0.9); MONOCYTES % 7.3 % (0.0-11.0); NEUTROPHILS % 70.9 % (39.0-77.0); PLATELET COUNT 439 10^3/UL (140-415); RED BLOOD COUNT 3.12 10^6/ul (4.20-5.40); RED CELL DISTRIBUTION WIDTH 14.2 % (11.5-14.5)
[2017-08-28] MEDS: D5-NS + KCL 20 MEQ 1,000 ML IV (05:34)
[2017-08-28] MEDS: PIPER-TAZO 3.375 GM IV (PMX) 100 ML IVPB ×3 (05:35→17:33)
[2017-08-28] MEDS: PANTOPRAZOLE 40 MG INJ IV (05:35)
[2017-08-28 05:55] LABS: PHOSPHORUS 3.9 mg/dl (2.5-4.9)
[2017-08-28 05:55] LABS: MAGNESIUM 2.3 mg/dl (1.7-2.5)
[2017-08-28] MEDS: ENOXAPARIN 40 MG/0.4 ML SYG SC (06:16)
[2017-08-28 07:24] LABS: ALANINE AMINOTRANSFERASE 51 IU/L (13-69); ALBUMIN 2.8 g/dl (3.3-4.9); ALKALINE PHOSPHATASE 117 IU/L (42-121); ASPARTATE AMINO TRANSFERASE 38 IU/L (15-46); BILIRUBIN,INDIRECT 0.6 mg/dl (0-1.1); BILIRUBIN,TOTAL 0.6 mg/dl (0.2-1.3); CALCIUM 8.7 mg/dl (8.4-10.2); CARBON DIOXIDE 31 mmol/L (21-31); CHLORIDE 109 mmol/L (97-110); CREATININE 0.69 mg/dl (0.44-1.00); GLUCOSE 103 mg/dl (70-220); POTASSIUM 3.8 mmol/L (3.5-5.1); TOTAL PROTEIN 5.9 g/dl (6.1-8.1)
[2017-08-28 07:35] LABS: ANION GAP 9 (8-16); BLOOD UREA NITROGEN < 2 mg/dl (7-20); SODIUM 145 mmol/L (135-144)
[2017-08-28] MEDS: HYDROCODONE/APAP (5/325) TAB PO ×2 (10:04→16:22)
[2017-08-28] MEDS: HYDROCODONE/APAP (10/325) TAB PO ×2 (12:45→22:29)
[2017-08-29] MEDS: PIPER-TAZO 3.375 GM IV (PMX) 100 ML IVPB ×5 (00:55→23:20)
[2017-08-29 05:21] LABS: ADD MAN DIFF? NO
[2017-08-29 05:23] LABS: WHITE BLOOD COUNT 7.2 10^3/ul (4.8-10.8)
[2017-08-29 05:23] LABS: BASOPHILS % 0.3 % (0.0-2.0); EOSINOPHILS # 0.2 10^3/ul (0.0-0.5); EOSINOPHILS % 2.1 % (0.0-7.0); HEMATOCRIT 27.9 % (37.0-47.0); HEMOGLOBIN 9.3 g/dl (12.0-16.0); LYMPHOCYTES # 1.1 10^3/ul (0.8-2.9); LYMPHOCYTES % 15.9 % (15.0-51.0); MEAN CORPUSCULAR HEMOGLOBIN 28.6 pg (29.0-33.0); MEAN CORPUSCULAR HGB CONC 33.3 g/dl (32.0-37.0); MEAN CORPUSCULAR VOLUME 85.8 fl (82.0-101.0); MEAN PLATELET VOLUME 8.9 fl (7.4-10.4); MONOCYTE # 0.5 10^3/ul (0.3-0.9); MONOCYTES % 7.3 % (0.0-11.0); NEUTROPHIL # 5.3 10^3/ul (1.6-7.5); NEUTROPHILS % 73.7 % (39.0-77.0); PLATELET COUNT 462 10^3/UL (140-415); RED BLOOD COUNT 3.25 10^6/ul (4.20-5.40); RED CELL DISTRIBUTION WIDTH 14.3 % (11.5-14.5)
[2017-08-29] MEDS: PANTOPRAZOLE 40 MG INJ IV (05:48)
[2017-08-29] MEDS: HYDROCODONE/APAP (10/325) TAB PO ×5 (05:48→22:32)
[2017-08-29] MEDS: ENOXAPARIN 40 MG/0.4 ML SYG SC (05:50)
[2017-08-29 05:57] LABS: ANION GAP 13 (8-16); BLOOD UREA NITROGEN 3 mg/dl (7-20); CALCIUM 9.2 mg/dl (8.4-10.2); CARBON DIOXIDE 30 mmol/L (21-31); CHLORIDE 105 mmol/L (97-110); CREATININE 0.73 mg/dl (0.44-1.00); GLUCOSE 99 mg/dl (70-220); POTASSIUM 3.8 mmol/L (3.5-5.1); SODIUM 144 mmol/L (135-144)
[2017-08-29 06:00] LABS: PHOSPHORUS 4.5 mg/dl (2.5-4.9)
[2017-08-29 06:00] LABS: MAGNESIUM 2.3 mg/dl (1.7-2.5)
[2017-08-29] MEDS ORDERED: HYDROCODONE/APAP (5/325) TAB PO (10:00)
[2017-08-30] MEDS: HYDROCODONE/APAP (10/325) TAB PO ×6 (02:29→22:37)
[2017-08-30] MEDS: PANTOPRAZOLE 40 MG INJ IV (05:26)
[2017-08-30] MEDS: PIPER-TAZO 3.375 GM IV (PMX) 100 ML IVPB ×4 (05:26→23:59)
[2017-08-30 05:48] LABS: ADD MAN DIFF? NO
[2017-08-30 06:04] LABS: BASOPHILS % 0.4 % (0.0-2.0); EOSINOPHILS # 0.2 10^3/ul (0.0-0.5); EOSINOPHILS % 2.3 % (0.0-7.0); HEMATOCRIT 27.9 % (37.0-47.0); HEMOGLOBIN 9.2 g/dl (12.0-16.0); LYMPHOCYTES # 1.5 10^3/ul (0.8-2.9); LYMPHOCYTES % 19.6 % (15.0-51.0); MEAN CORPUSCULAR HEMOGLOBIN 28.7 pg (29.0-33.0); MEAN CORPUSCULAR VOLUME 86.9 fl (82.0-101.0); MEAN PLATELET VOLUME 9.2 fl (7.4-10.4); MONOCYTE # 0.6 10^3/ul (0.3-0.9); MONOCYTES % 8.1 % (0.0-11.0); NEUTROPHIL # 5.2 10^3/ul (1.6-7.5); NEUTROPHILS % 69.1 % (39.0-77.0); PLATELET COUNT 499 10^3/UL (140-415); RED BLOOD COUNT 3.21 10^6/ul (4.20-5.40); RED CELL DISTRIBUTION WIDTH 14.6 % (11.5-14.5)
[2017-08-30 06:04] LABS: WHITE BLOOD COUNT 7.5 10^3/ul (4.8-10.8)
[2017-08-30 06:19] LABS: ANION GAP 9 (8-16); BLOOD UREA NITROGEN 7 mg/dl (7-20); CALCIUM 8.9 mg/dl (8.4-10.2); CARBON DIOXIDE 32 mmol/L (21-31); CHLORIDE 107 mmol/L (97-110); CREATININE 0.84 mg/dl (0.44-1.00); GLUCOSE 103 mg/dl (70-220); MAGNESIUM 2.2 mg/dl (1.7-2.5); POTASSIUM 3.6 mmol/L (3.5-5.1); SODIUM 144 mmol/L (135-144)
[2017-08-30 06:19] LABS: PHOSPHORUS 4.3 mg/dl (2.5-4.9)
[2017-08-30] MEDS: ENOXAPARIN 40 MG/0.4 ML SYG SC (06:34)
[2017-08-30] MEDS ORDERED: HYDROmorphONE 2 MG/ML SYG IV (10:30)
[2017-08-31] MEDS: HYDROCODONE/APAP (10/325) TAB PO ×3 (04:27→17:23)
[2017-08-31] MEDS: PIPER-TAZO 3.375 GM IV (PMX) 100 ML IVPB ×2 (05:56→11:38)
[2017-08-31] MEDS: PANTOPRAZOLE 40 MG INJ IV (05:56)
[2017-08-31] MEDS: ENOXAPARIN 40 MG/0.4 ML SYG SC (06:02)
== END 2017-08-31 18:15 | disposition home or self-care (01) | DRG 853 ==
LOC: PP2 08-18 02:19 → MS1 08-23 11:49 → E/R 21:49 → MS1 08-24 12:51
PROC: 0UT90ZZ Resection of Uterus, Open Approach (ICD-10-PCS; principal; 2017-08-23 07:30)
PROC: 0UT70ZZ Resection of Bilateral Fallopian Tubes, Open Approach (ICD-10-PCS; 2017-08-23 07:30)
PROC: 0UT20ZZ Resection of Bilateral Ovaries, Open Approach (ICD-10-PCS; 2017-08-23 07:30)
PROC: 0DBU0ZZ Excision of Omentum, Open Approach (ICD-10-PCS; 2017-08-23 07:30)
PROC: 07TD0ZZ Resection of Aortic Lymphatic, Open Approach (ICD-10-PCS; 2017-08-23 07:30)
PROC: 07TC0ZZ Resection of Pelvis Lymphatic, Open Approach (ICD-10-PCS; 2017-08-23 07:30)
PROC: 0DBH0ZZ Excision of Cecum, Open Approach (ICD-10-PCS; 2017-08-23 07:30)
PROC: 0DTJ0ZZ Resection of Appendix, Open Approach (ICD-10-PCS; 2017-08-23 07:30)
DX: A41.52 Sepsis due to Pseudomonas (principal); K35.2 Acute appendicitis with generalized peritonitis; C56.1 Malignant neoplasm of right ovary; C56.2 Malignant neoplasm of left ovary; Z78.0 Asymptomatic menopausal state; D64.9 Anemia, unspecified; B96.5 Pseudomonas (aeruginosa) (mallei) (pseudomallei) as the cause of diseases classified elsewhere; B96.20 Unspecified Escherichia coli [E. coli] as the cause of diseases classified elsewhere; B95.4 Other streptococcus as the cause of diseases classified elsewhere; B96.6 Bacteroides fragilis [B. fragilis] as the cause of diseases classified elsewhere
CPT/HCPCS: 36415; 71045; 74176; 74177; 76830; 76856; 80048; 80053; 80202; 81001; 82378; 83036; 83605; 83690; 83735; 84100; 84443; 85018; 85025; 85610; 85730; 86301; 86304; 86305; 86850; 86900; 86901; 86920; 87040; 87070; 87075; 87086; 87102; 87116; 88104; 88305; 88307; 88341; 88342; 96374; 96375; 99285-25

== ENCOUNTER 2017-08-31 21:24 | Emergency (ER) | payer MEDICAID | END 2017-08-31 21:50 | disposition home or self-care (01) | LOC: E/R 21:50 | DX: Z76.0 Encounter for issue of repeat prescription (principal) | CPT/HCPCS: 99281; Z7502 ==

== ENCOUNTER 2017-09-04 15:05 | Emergency (ER) | payer MEDICAID ==
[2017-09-04] MEDS: FLUCONAZOLE 150 MG TAB PO (16:07)
[2017-09-04] MEDS: CLOTRIMAZOLE 1% 30 ML TOPICAL SOLN TOP (16:07)
== END 2017-09-04 16:14 | disposition home or self-care (01) ==
LOC: FTE 15:05
DX: R21 Rash and other nonspecific skin eruption (principal)
CPT/HCPCS: 99283; Z7502

== ENCOUNTER 2018-05-10 17:50 | Emergency (ER) | payer SELFPAY, MEDICAID | END 2018-05-10 19:37 | disposition home or self-care (01) | LOC: FTE 17:50 | DX: S92.414A Nondisplaced fracture of proximal phalanx of right great toe, initial encounter for closed fracture (principal); V03.10XA Pedestrian on foot injured in collision with car, pick-up truck or van in traffic accident, initial encounter | CPT/HCPCS: 73630; 99283-25 ==